=== PATIENT | female | born 1945 | race Caucasian/White ===

== ENCOUNTER 2024-11-07 11:38 | Emergency (ER) | payer MEDICARE, SELFPAY ==
[2024-11-07 11:46] VITALS: BP 152/90
[2024-11-07 11:57] VITALS: BMI 25.3
--- NOTE | 2024-11-07 12:06 | ED.GENMED ---
History of Present Illness
<Rinku Montemayor, DO - Last Filed: 11/08/24 11:32>
General
Chief Complaint: Crisis Evaluation
Time Seen by Provider: 11/07/24 12:06
History of Present Illness
History of Present Illness:
TIME OF INITIAL ENCOUNTER: 12:07 PM
HPI: The patient presents due to escalating symptoms of depression. She feels hopeless and helpless. She states that her is a war and has PTSD and because of this she has been having increasing depression. She lacks family/support
for her thoughts. However she is here with a friend who drove her here. She has some passive thoughts of SI but has no plan and does not think she would ever do anything. She has no guns at home.
EXAM:
GENERAL: Well appearing in no distress
HEENT: Moist oral mucosa
CARDIOVASCULAR: No murmurs, normal heart rate, regular rhythm, No chest wall tenderness
PULMONARY: No respiratory distress, breath sounds are clear and equal
ABDOMEN: Soft with no peritoneal signs, no tenderness
NEUROLOGIC: Excellent strength all extremities, no coordination deficits
PSYCHIATRIC: Appropriate mental status, normal insight and judgement, however she does have somewhat of a depressed affect
EXTREMITIES: Nontender, no edema, moves all extremities equally
SKIN: No rash, no lesions
NUMBER AND COMPLEXITY OF PROBLEMS ADDRESSED AT THE ENCOUNTER
� Chronic conditions affecting care: Depression, atrial fibrillation has had ablation
� Acute Exacerbation and/or Progression of Chronic Illness: This is an acute problem
� Differential Diagnosis includes: Severe depression, SI
AMOUNT AND/OR COMPLEXITY OF DATA TO BE REVIEWED AND ANALYZED
� I performed an independent evaluation of and my interpretation is:
EKG: Sinus 68, no acute ST abnormality, no old to compare
CT:
X-rays:
Laboratory Studies:
Other:
� Review of other/old records: No old records available for review
� Clinical information was obtained by an independent historian: I spoke to her friend at bedside
� Prescriptions/Medications Considered but not given:
� Further testing considered but not performed:
RISK OF COMPLICATIONS AND/OR MORBIDITY OR MORTALITY OF PATIENT MANAGEMENT
� Social determinants of health affecting care: Lives at home
� Discussion with other providers: Shortly after I evaluated patient initially, I notified Dr. Lowry of request for consult. I also notified crisis for consult.
� Escalation of care including admission/observation vs risk of discharge considered: The patient has no specific plan for suicide and primarily just concerned because of her severe depression symptoms. She is requesting
something for depression. Therefore, I reached out to Dr. Lowry who says that he will evaluate her in consultation.
ANY OTHER UPDATES:
Phy Exam
<Rinku Montemayor, DO - Last Filed: 11/08/24 11:32>
Physical Exam
Physical Exam:
See HPI
Course
<Rinku Montemayor, DO - Last Filed: 11/08/24 11:32>
Orders/Labs/Results
Orders:
Orders
11/07/24 11:43
1:1 Observation - Suicide/ Violent Behavior As Directed
11/07/24 12:14
Electrocardiogram (*1) Urgent
Reason for Study: Chest Pain
EKG- Treatment ONCE
11/07/24 12:22
Crisis Consult Urgent
Reason for Consult: severe depression
Vital Signs
Initial and Last Documented VS:
Initial Vital Signs
Temp Pulse Resp BP Pulse Ox
37.2 C 78 20 152/90 98
11/07/24 11:46 11/07/24 11:46 11/07/24 11:46 11/07/24 11:46 11/07/24 11:46
Last Documented Vital Signs
Temp Pulse Resp BP Pulse Ox
37.2 C 78 20 152/90 98
11/07/24 11:46 12/17/24 11:46 11/07/24 11:46 11/07/24 11:46 11/07/24 11:46
<Jalen Ramirez, DO - Last Filed: 11/07/24 14:18>
Orders/Labs/Results
Orders:
Orders
11/07/24 11:43
1:1 Observation - Suicide/ Violent Behavior As Directed
11/07/24 12:14
Electrocardiogram (*1) Urgent
Reason for Study: Chest Pain
EKG- Treatment ONCE
11/07/24 12:22
Crisis Consult Urgent
Reason for Consult: severe depression
Vital Signs
Initial and Last Documented VS:
Initial Vital Signs
Temp Pulse Resp BP Pulse Ox
37.2 C 78 20 152/90 98
11/07/24 11:46 11/07/24 11:46 11/07/24 11:46 11/07/24 11:46 11/07/24 11:46
Last Documented Vital Signs
Temp Pulse Resp BP Pulse Ox
37.2 C 78 20 152/90 98
11/07/24 11:46 11/07/24 11:46 11/07/24 11:46 11/07/24 11:46 11/07/24 11:46
<Rinku Montemayor, DO - Last Filed: 11/08/24 11:32>
*Critical Care Note
Total Time (30-74mins, 75-104mins- exclusive of procedures): Not Applicable
<Jalen Ramirez, DO - Last Filed: 11/07/24 14:18>
Update Note
Update Note:
2 PM care of patient was transitioned pending psych evaluation. Patient was getting antsy to leave. I did discuss the case with psychiatry and we discussed possibly starting trazodone at nighttime as needed but psychiatry seems hesitant to start
any long-term medications from the ER standpoint. I discussed the case with the patient and she is agreeable with this plan. I will start a low-dose trazodone with thoughts of her following up with her primary care doctor to be evaluated and
possibly continued on this medicine or placed on something else. Crisis working on outpatient referrals and believes patient can follow-up with [facility] [place] [facility]
ED Attending Note
<Rinku Montemayor, DO - Last Filed: 11/08/24 11:32>
-
Portions of this chart may have been created with voice recognition software.� Occasional wrong word or��sound alike� substitutions may have occurred due to the inherent limitations of voice recognition software.
Discharge Plan
Departure
Patient Disposition: Home (Routine Discharge)
Date of Disposition: 11/07/24
Time of Disposition: 14:09
Patient with high blood pressure during this ER visit?: Yes
Discharge Problem:
Depression
Instructions: Depression, Adult (DC), BLOOD PRESSURE
Prescriptions:
New
trazodone 50 mg tablet
25 mg PO HS Qty: 14 0RF
Referrals:
Viviane Watts MD [Family Provider] -
Activity Restrictions/Additional Instructions:
As we discussed, I am placing you on a low-dose of a medication called trazodone. This will help with sleep and depression.
However, it is important to follow-up with your primary care doctor to have this regimen further evaluated and possibly placed different.
Please return for any worsening symptoms.
You may return at any time if you have further concerns.
Interventions
Interventions:
*Risk Screen - Suicide Last Done: 11/07/24 11:41
*General Assessment Last Done: 11/07/24 11:46
*Neglect/Abuse Screening Last Done: 11/07/24 11:46
ED- Fall Risk Assessment Last Done: 11/07/24 12:06
*ED COVID-19 Vaccine History Last Done: 11/07/24 11:57
*Nursing Disposition Last Done: 11/07/24 14:16
ED-Psychological Assessment Last Done: 11/07/24 12:06
Discharge Date and Time
Discharge Date/Time: 11/07/24 14:16
Print Language: MALTESE
== END 2024-11-07 14:16 | disposition home or self-care (01) ==
LOC: EMR 11:38
PROVIDERS: EMERGENCY PHYSICIAN Emergency Medicine; FAMILY PHYSICIAN Family Medicine
DX: F32.A Depression, unspecified (principal)
CPT/HCPCS: 99283; 93005